=== PATIENT | male | born 1965 | race Caucasian/White ===

== ENCOUNTER 2022-04-18 17:18 | Emergency (ER) | payer SELFPAY ==
[2022-04-18 17:25] VITALS: BP 190/103; PULSE 72; RESP 18; TEMP 36.1; O2SAT 97; BMI 28.8
[2022-04-18 17:30] VITALS: BP 186/95; PULSE 72; O2SAT 96
[2022-04-18 18:00] VITALS: BP 193/103; PULSE 65; O2SAT 97
--- NOTE | 2022-04-18 18:20 | ED.GENADULT ---
HPI - General Adult General Chief complaint: High Blood Pressure Stated complaint: High Blood Pressure Time Seen by Provider: 04/18/22 17:22 History of Present Illness HPI narrative: Patient is a 57-year-old gentleman who is been out of his blood pressure medication for quite some time. Over last several days he is feeling his heart his been beating harder than normal though he denies any overt chest pain shortness breast orthopnea no PND no worsening symptoms with exertion. Patient previously was on Toprol XL which he has discontinued. Blood pressure was well controlled when on the Toprol XL. He checked his blood pressure last night and found to be greater than 200 systolic. Patient did not feel it coming last night and rested comfortably overnight. He feels fine today would like to be started back on his blood pressure medication. Related Data Previous Rx's Medication Instructions Recorded metoprolol succinate 50 mg 50 mg PO DAILY #30 tab 04/18/22 tablet,extended release 24 hr (Toprol XL) Allergies Allergy/AdvReac Type Severity Reaction Status Date / Time No Known Drug Allergies Allergy Verified 04/18/22 17:24 Review of Systems Status of ROS: Reports: 10 or more systems reviewed and unremarkable except as noted in History and below PFSH PFS Social History Smoking Status: Current every day smoker What tobacco products do you use: cigarettes Do you use any of these nicotine containing products: None Second hand tobacco smoke exposure: No How often do you have a drink containing alcohol: never How often do you have six or more drinks on one occasion: Never AUDIT-C Alcohol total score: 0 Non-prescribed substance use: denies use Exam Narrative: Exam Narrative: EXAM GENERAL: Patient appears comfortable and well. EYES: No scleral icterus. LYMPH: No supraclavicular or cervical lymphadenopathy. SKIN: Visible skin seen during exam normal or with benign process only. EXT: No dependent lower extremity pedal edema. HEART: Regular rate and rhythm with no murmurs, rubs, or gallops. LUNGS: Clear to auscultation bilaterally with no crackles or wheezes. ABD: Soft, non tender, non distended. PSYCH: Good eye contact, speech is not pressured. Const: Vital Signs, click to edit/add: Vital Signs - 24 hr 04/18/22 17:25 Temperature 97.0 F L Pulse Rate [Left P ulse Oximeter] 72 Respiratory Rate 18 Blood Pressure [Le ft Upper Arm] 190/103 H Pulse Oximetry 97 Course Vital Signs Vital signs: Initial Vital Signs Temperature 97.0 F L 04/18/22 17:25 Temperature Source Temporal Artery Scan 04/18/22 17:25 Pulse Rate 72 04/18/22 17:25 Respiratory Rate 18 04/18/22 17:25 Blood Pressure 190/103 H 04/18/22 17:25 Blood Pressure Mean 132 04/18/22 17:25 Blood Pressure Position Standing 04/18/22 17:25 Pulse Oximetry 97 04/18/22 17:25 Oxygen Delivery Method 04/18/22 17:25 Vital Signs Temperature 97.0 F L 04/18/22 17:25 Pulse Rate 72 04/18/22 17:25 Respiratory Rate 18 04/18/22 17:25 Blood Pressure 190/103 H 04/18/22 17:25 Pulse Oximetry 97 04/18/22 17:25 Temperature 97.0 F L 04/18/22 17:25 Pulse Rate 72 04/18/22 17:25 Respiratory Rate 18 04/18/22 17:25 Blood Pressure 190/103 H 04/18/22 17:25 Pulse Oximetry 97 04/18/22 17:25 Medical Decision Making MDM Narrative Medical decision making narrative: I do not believe the patient is having angina or any ectopy. He has minimal symptoms and would simply like he started back on his blood pressure medication. We did discuss laboratory studies and workup he agrees that if he continues to have problems of being started back on his Toprol XL he will follow-up with his primary physician. Discharge Plan Discharge Clinical Impression: Hypertension Patient Disposition: Home, Self-Care Condition: Stable Instructions: Hypertension (ED) Activity Level: No Restrictions Discharge Diet: Regular Prescriptions: New metoprolol succinate [Toprol XL] 50 mg tablet extended release 24 hr 50 mg PO DAILY Qty: 30 3RF Follow Up/Referrals: Singh Hastings MD [Primary Care Provider] - Stand Alone Forms: MyHealth Info Instructions
[2022-04-18 18:30] VITALS: BP 195/101; PULSE 62; O2SAT 97
== END 2022-04-18 18:47 | disposition home or self-care (01) ==
PROVIDERS: Emergency Provider Internal Medicine; PCP Family Medicine
DX: I10 Essential (primary) hypertension (principal)
CPT/HCPCS: 99283; 99284